=== PATIENT | female | born 1965 | race Caucasian/White ===

== ENCOUNTER → 2016-11-24 | Outpatient (CLI) | payer OTHER ==
[~2016-11-24] MED LIST: AGM875 PO; ARMOUR THYROID PO; CALC500T72 PO; CALCIUM PO; FLAX OIL PO; IBUP600T44 PO; PRENATA2 PO; [UNRECOGNIZED DRUG - OTHER] PO
--- NOTE | 2016-11-24 11:09 | DIAGNOSTIC IMAGING REPORT ---
THYROID ULTRASOUND CLINICAL HISTORY: Hypothyroidism. COMPARISON STUDY: None TECHNIQUE: Sonography of the thyroid gland was performed. FINDINGS: The right thyroid lobe measures 4.6 x 1.2 x 1.7 cm and the left lobe measures 4.2 x 1 x 1.5 cm. The size of the gland is normal. A 2 mm hypoechoic left lobe nodule is present. This is likely benign. IMPRESSION: 1. Normal size thyroid gland. 2. 2 mm left lobe nodule which is likely benign. Electronically signed by: Jatin Caldera M.D. 11/24/2016 11:07 AM Dictated Date/Time: 11/24/2016 11:06 AM
== END | disposition home or self-care (01) ==
LOC: C.ULTR 10:16
PROVIDERS: ATTEND Nurse Practitioner Family
DX: E03.9 Hypothyroidism, unspecified (principal); E04.1 Nontoxic single thyroid nodule